=== PATIENT | female | born 1945 | race Caucasian/White ===

== ENCOUNTER 2022-10-05 09:41 | Day surgery (SDC) | payer MEDICARE, BC, SELFPAY ==
[2022-10-05] VITALS (23 sets, daily range): BP systolic 92–172; BP diastolic 47–90; PULSE 53–76; RESP 14–141; TEMP 36–36.7; O2SAT 88–100; BMI 28.3
[2022-10-05] MEDS: LACTATED RINGERS 1000 ML 1,000 ML 100 ML IV ×2 (10:00→12:00)
--- NOTE | 2022-10-05 10:19 | XR_ITS ---
Final Report Patient: PAT GARZA Facility:?[facility] Patient ID:?[id number] Site Patient ID:?[id number]. Site :?[id number] Study:?XRay Knee Right-10/05/2022 1:56:21 PM Ordering Physician:Rosmery Porter Final Report: INDICATION: Post operative total knee arthroplasty TECHNIQUE: Knee radiograph 2 views right COMPARISON: 08/28/2021 FINDINGS: Bone: No acute fractures or aggressive bone lesions are identified. Joint: The patient is status post a total knee arthroplasty with patellar resurfacing. No significant knee effusion is seen. Soft tissue: Anterior swelling, subcutaneous gas and joint gas are present from recent surgery. No radiopaque foreign bodies are seen. IMPRESSION: 1. There is an unremarkable postoperative appearance of the knee arthroplasty. Dictated by: Rohith Wade MD @ 10/05/2022 14:30:19 (Electronic Signature)
[2022-10-05] MEDS: SODIUM CHLORIDE 0.9 % (FLUSH) 10 ML SYRINGE IVF (10:34)
[2022-10-05] MEDS: ACETAMINOPHEN 500 MG TABLET 1000 MG PO ×3 (10:40→23:31)
[2022-10-05] MEDS: CELECOXIB 200 MG CAPSULE PO ×2 (10:40→20:54)
[2022-10-05] MEDS: OXYCODONE (CR) 10 MG TAB.ER.12H PO (10:43)
--- NOTE | 2022-10-05 11:00 | SUR.PREOP ---
TIME?OUT:?1118 PT/RN/MDA?VERIFICATION?OF?SURGICAL?SITE,?PROCEDURE,?AND?CONSENT OBTAINED?PRIOR?TO?INVASIVE?PROCEDURE.
[2022-10-05] MEDS: MIDAZOLAM HCL 1 MG/ML inj IVP (11:18)
[2022-10-05] MEDS: fentaNYL 100 MCG/2 ML inj IVP (11:20)
--- NOTE | 2022-10-05 11:28 | P.NB_ITS ---
Nerve Block Nerve Block Time Seen by Provider: : Date Seen: 10/05/22 Type of block requested by surgeon for post-operative analgesia: geniculars Side: right Time out performed: Yes Verification of patient name: Yes Verification of date of : Yes Site marking: site marked Name of person performing procedure: Harish Continuous monitoring Was continuous monitoring of O2 sat, B/P, measurement technician, recorded every 15 minutes?: Yes Procedure Checklist: sterile prep, needles and gloves Medications given in 5ml increments after negative aspiration: Ropivicaine %: 0.5 mL: 9 Needle gauge: 25 Patient tolerated procedure well: Yes Block Charges Block Charge (with Pro Fee): Genicular Nerve Block Use of Ultrasound Machine for Block: No
--- NOTE | 2022-10-05 11:28 | W.PM.NB ---
Nerve Block Nerve Block Time Seen by Provider: : Date Seen: 10/05/22 Type of block requested by surgeon for post-operative analgesia: adductor canal Side: right Time out performed: Yes Verification of patient name: Yes Verification of date of : Yes Site marking: site marked Name of person performing procedure: Harish Continuous monitoring Was continuous monitoring of O2 sat, B/P, alarm security or surveillance monitor, recorded every 15 minutes?: Yes Procedure Checklist: sterile prep, needles and gloves Ultrasound guided. Images saved: Yes Medications given in 5ml increments after negative aspiration: Ropivicaine %: 0.5 mL: 20 Needle gauge: 20 Decadron (mg): 10 Precedex (mcg): 25 Patient tolerated procedure well: Yes Additional comments: Needle noted adjacent to nerve Block Charges Block Charge (with Pro Fee): Femoral Nerve Use of Ultrasound Machine for Block: Yes- US Guidance/pain block
[2022-10-05] MEDS: CEFAZOLIN 2 GM in 0.9 % SODIUM CHLORIDE Mini-bag 100 ML IVPB (11:42)
[2022-10-05] MEDS: TRANEXAMIC ACID 100 MG/ML INJ 1000 MG IV (11:44)
--- NOTE | 2022-10-05 13:16 | PM.ORPRC ---
Procedure Note Date of procedure: 10/05/22 Procedure: PREOPERATIVE DIAGNOSIS: 1. Right knee osteoarthritis, primary, severe POSTOPERATIVE DIAGNOSIS: 1. Right knee osteoarthritis, primary, severe PROCEDURE: 1. Right total knee arthroplasty SURGEON: German Camarena MD. MOTOR LODGE CLERK: Emanuel Palacios PA-C - Of note, a skilled assistant manager airside operations was critical for this case to aid in patient positioning, tissue retraction, limb manipulation/positioning, and closure. ANESTHESIA: Spinal anesthetic IMPLANTS: DePuy J&J all cemented TKA - Attune PS femur size 4 regular, size 3 tibia, 6 mm poly spacer, 32 mm patella TOURNIQUET: 90 min at 300 torr EBL: 50 ml COMPLICATIONS: None evident INDICATIONS: The patient is a pleasant 77-year-old female who has experienced severe right knee pain and difficulty bearing weight. Workup included x-rays which revealed severe osteoarthrosis in the knee. Given the deformity, the dysfunction, and the pain, as well as the failure of nonoperative management, recommendation was made for surgery. FINDINGS: Full-thickness chondral loss medial compartment broadly. Significant chondromalacia patellofemoral compartment as well and to a lesser degree lateral compartment. Large popliteal cyst encountered. Posterior and perimeter osteophytes noted. DESCRIPTION OF PROCEDURE: Following a thorough discussion of risks, benefits, and alternatives consent was obtained and the right knee was marked. The patient was brought to the operating room and placed supine on the operating table. Induction of anesthesia was undertaken. 1 g IV Ancef and 1 g tranexamic acid was administered within 1 hr of incision preoperatively. Proper time-out was performed identifying proper patient, site, procedure. The operative extremity was prepped and draped in the appropriate sterile fashion using ChloraPrep after the patient was positioned supine with all bony prominences well padded. A longitudinal, anterior, midline skin incision was made starting approximately 3cm proximal to the superior pole of the patella and advanced distal to the tibial tubercle. A median parapatellar arthrotomy was created. A medial subperiosteal sleeve was created with knife, crooks elevator and curved osteotome. The retropatellar fatpad was resected and the synovium in the suprapatellar pouch excised to visualize the anterior femoral cortex. Femoral preparation was performed via an intramedullary guide. Step drill allowed access into the femoral canal. The distal cutting guide was placed with 5? of valgus and 10 mm cut on the distal femur. Femur was sized using a posterior referencing guide in 3? of external rotation. This found have a best fit with the sizing noted above. The 4 in 1 cutting block was then placed, and the distal femur shaped accordingly. The box cut was then created and the trial implant inserted to confirm appropriate fit. We turned our attention to the proximal tibia. Extramedullary guide was utilized for cutting with the goal of being 90 degree cut from the mechanical axis of the tibia in the varus/valgus plane utilizing tibial crest as the primary alignment. Initially a 2 mm resection was performed from the medial tibial plateau. Ultimately, balancing was achieved in both flexion and extension in both varus and valgus. The knee was able to achieve full extension as well comfortably. The patella was initially measured and found have a thickness of 21 mm. It was resected back to approximately 14 mm. It was sized to be a best fit with as noted above. This was drilled, trial placed. All trials were placed and found to have an excellent stability and balance. At this stage, trial implants were removed, the knee was thoroughly irrigated with normal saline, and the cement was mixed. After irrigation, the knee was thoroughly dried, and cement placed, with the real tibial and femoral implants placed along with the patella. Trial poly spacer was placed and confirmed to have excellent range of motion and full extension, and the real poly spacer opened and inserted. All extra cement was removed, and a 3 min Betadine soak performed. Finally, a final irrigation round with normal saline was performed. Closure performed with 0 Vicryl and #0 Stratafix for the quad tendon/retinaculum. 2-0 Vicryl for the subcutaneous and 4-0 Stratafix for subcuticular closure. Dressings were applied and the patient was awoken from anesthesia after the tourniquet deflated and transferred the PACU in stable condition. A skilled assistant manager airside operations was critical for this case to aid in patient positioning, tissue retraction, bone exposure, limb manipulation/positioning, patient safety, and closure. PLAN: 1. Weight bear as tolerated operative extremity. 2. 23 hr perioperative antibiotics. 3. Ice. 4. PT/OT consults for ambulation assistance/mobility education. 5. Social work consult for discharge planning. 6. DVT prophylaxis with at SCDs, Diogo Hose, and aspirin twice daily.
--- NOTE | 2022-10-05 13:42 | W.ANESCHARGE ---
Anesthesia Charges Start Date/Time Anesthesia Start Date: 10/05/22 Anesthesia Start Time: 11:29 Stop Date/Time Anesthesia Stop Date: 10/05/22 Anesthesia Stop Time: 13:42 Summary Emergency: No Extremes of Age: Over 72-CPT 91859
[2022-10-05] MEDS: ONDANSETRON 2 MG/ML inj 4 MG IVP ×2 (14:58→20:15)
--- NOTE | 2022-10-05 16:03 | P.IMCN_ITS ---
Date of Consult Consult date: 10/05/22 Requesting Physician: Orthopedics Primary Care Provider: Marcia Christie MD Consult Narrative Reason for consult: Management of medical problems Narrative: Kiki Zazueta is a 77 year old female seen after right total knee arthroplasty for management of medical problems. There were no operative complications. Patient reports that she has postoperative nausea which is not unusual for her. She also reports being very sleepy. She did not sleep well last night. Also experiencing lingering affects of anesthesia sedation. Pain is well controlled. Her spinal anesthesia is just wearing off. No chills or fever. This morning when she awoke she reportedly was doing well. She has not any recent illness or injury. There were no concerns at her preop physical examination. No problems with bleeding or clotting. She does get nausea from anesthesia with past surgeries. Review of Systems Narrative: She reports no recent health issues or concerns. [facility] Medical History (Updated 10/05/22 @ 16:12 by José Fuentes MD) Encounter for IUD removal (~1972) Hyperlipidemia Hypertension Surgical History (Updated 10/05/22 @ 16:07 by José Fuentes MD) H/O: hysterectomy (~2003) History of breast biopsy History of D&C History of tonsillectomy Family History (Updated 09/22/22 @ 14:29 by Kiki Khanna RN) Father Emphysema lung CHF (congestive heart failure) Mother Macular degeneration Social History (Updated 10/05/22 @ 16:09 by José Fuentes MD) Narrative: She lives in [place] with her . 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 Code status is full. They live in a home that has 2 steps to get in and then she can live on 1 level. She does not smoke. She drinks 2 or 3 glasses of wine per week. Smoking Status: Never smoker Do you use any of these nicotine containing products: None How often do you have a drink containing alcohol: 2-3 times a week Alcohol type: wine How many standard drinks containing alcohol do you have on a typical day: 1 or 2 How often do you have six or more drinks on one occasion: Never AUDIT-C Alcohol total score: 3 Non-prescribed substance use: denies use Caffeine: Yes (coffee 2 cups/a.m.) Meds Home Medications and Allergies Home Medications Medication Instructions Recorded Confirmed Type atenolol 50 mg tablet 50 mg PO BID 06/09/22 10/05/22 History atorvastatin 20 mg tablet (Lipitor) 20 mg PO HS 06/09/22 10/05/22 History spironolactone 50 mg tablet 50 mg PO DAILY 06/09/22 10/05/22 History ammonium lactate 12 % lotion 1 applic topical BID 10/05/22 10/05/22 History fexofenadine-pseudoephedrine ER 1 tab PO DAILY 10/05/22 10/05/22 History 180 mg-240 mg tablet,ext.release 24 hr (Katarina-D 24 Hour) triamcinolone acetonide 0.1 % 1 applic topical BID PRN 10/05/22 10/05/22 History topical cream Allergies Allergy/AdvReac Type Severity Reaction Status Date / Time CASSIA Inhibitors Allergy Mild Cough Verified 10/05/22 10:04 codeine Allergy Unknown Gastrointestinal Verified 10/05/22 10:04 Upset Penicillins Allergy Rash Verified 10/05/22 10:04 Exam Narrative: Exam Narrative: She is awake but sleepy. She appears in no distress. She answers questions appropriately. She is oriented to her circumstances. Eyes normal. Oropharynx with small airway. Neck is supple without mass or adenopathy. Respirations are clear to auscultation. Breathing is unlabored. Cardiovascular: S1, S2, regular rate and rhythm. No murmur gallop or rub. Abdomen is soft without tenderness or mass. Extremities with intact pulses, and intact sensation and no edema. She moves all 4 extremities well Const: Vital Signs, click to edit/add: Vital Signs - 24 hr 10/05/22 10:18 10/05/22 11:15 10/05/22 11:20 Temperature 97.4 F L Pulse Rate 62 62 64 Pulse Rate [Right Pulse Oximeter] Respiratory Rate 16 16 16 Blood Pressure 148/73 H 172/88 H 142/74 H Blood Pressure [Ri ght Arm] Pulse Oximetry 97 100 100 Oxygen Delivery Me thod Room Air Nasal Cannula Nasal Cannula Oxygen Flow Rate 2 2 10/05/22 11:25 10/05/22 13:40 10/05/22 14:09 Temperature 97.4 F L 97.6 F Pulse Rate 64 68 62 Pulse Rate [Right Pulse Oximeter] Respiratory Rate 16 14 15 Blood Pressure 150/74 H 92/56 L 123/82 Blood Pressure [Ri ght Arm] Pulse Oximetry 100 93 98 Oxygen Delivery Me thod Nasal Cannula Room Air Room Air Oxygen Flow Rate 2 10/05/22 13:45 10/05/22 13:50 10/05/22 13:55 Temperature Pulse Rate 68 61 62 Pulse Rate [Right Pulse Oximeter] Respiratory Rate 14 16 15 Blood Pressure 98/47 L 117/67 104/60 Blood Pressure [Ri ght Arm] Pulse Oximetry 94 88 98 Oxygen Delivery Me thod Room Air Room Air Nasal Cannula Oxygen Flow Rate 2 10/05/22 14:00 10/05/22 14:05 10/05/22 14:22 Temperature 97.2 F L Pulse Rate 60 60 60 Pulse Rate [Right Pulse Oximeter] Respiratory Rate 16 16 14 Blood Pressure 98/75 116/64 Blood Pressure [Ri ght Arm] 121/66 Pulse Oximetry 96 98 Oxygen Delivery Me thod Room Air Room Air Room Air Oxygen Flow Rate 0 10/05/22 14:30 10/05/22 14:45 10/05/22 15:00 Temperature 97.5 F L 96.9 F L 97.2 F L Pulse Rate Pulse Rate [Right Pulse Oximeter] 61 53 L 55 L Respiratory Rate 14 14 14 Blood Pressure Blood Pressure [Ri ght Arm] 119/89 124/69 129/64 Pulse Oximetry 97 97 95 Oxygen Delivery Me thod Room Air Room Air Room Air Oxygen Flow Rate 0 0 10/05/22 15:12 10/05/22 15:00 Temperature 97.1 F L Pulse Rate Pulse Rate [Right Pulse Oximeter] 55 L 55 L Respiratory Rate 14 14 Blood Pressure Blood Pressure [Ri ght Arm] 129/64 Pulse Oximetry 96 Oxygen Delivery Me thod Room Air Oxygen Flow Rate 0 Assessment and Plan Assessment and plan (1) Osteoarthritis of right knee: Problem comment: Right knee osteoarthrosis, moderate-severe. Generally doing well. Somewhat sedated at this point. Somewhat nauseated. Continue to follow these symptoms and manage as needed. Status: Acute (2) Hypertension: Problem comment: She held spironolactone today will continue to hold it until we see how her blood pressure response. Will also hold atenolol this evening but start atenolol in the morning at usual dose. Status: Acute Plan Anticipate uncomplicated recovery from surgery and discharge to home tomorrow. Total time spent today is 35 minutes, 20 minutes in coordination of care discussing with patient and ongoing evaluation management of knee surgery, rehab and hypertension
[2022-10-05] MEDS: OXYCODONE 5 MG TABLET PO ×3 (16:43→23:30)
[2022-10-05] MEDS: CEFAZOLIN 1 GM in 0.9 % SODIUM CHLORIDE Mini-bag 100 ML IVPB (17:42)
--- NOTE | 2022-10-05 18:30 | PC.NURSE ---
End of Shift: Patient pleasant and cooperative. Patient vitally stable, lungs clear, BS WNL, IV running LR at 75. Patient given zophran once and Q-easy patch for nausea, patient's nausea has gotten better. Patient so far has only eaten on jello, and still has her dinner order in front of her. Patient is 1 assist, walker, gb. Patient has ambulated to the toilet and is up in chair. Patient has rated pain at most 7/10, patient has taken scheduled tylenol and 5 of oxy, 10 of oxy will be given closer to end of shift. Cryocuff applied. Right knee dressing, C/D/I.
[2022-10-05] MEDS: SENNOSIDES 1 TAB TABLET 2 TAB PO (20:53)
[2022-10-05] MEDS: ASPIRIN 81 MG TABLET EC PO (20:54)
[2022-10-05] MEDS: LACTATED RINGERS 1000 ML 1,000 ML 75 ML IV (20:56)
[2022-10-06] MEDS: CEFAZOLIN 1 GM in 0.9 % SODIUM CHLORIDE Mini-bag 100 ML IVPB ×2 (01:59→09:52)
[2022-10-06] MEDS: ONDANSETRON 2 MG/ML inj 4 MG IVP ×2 (02:03→07:33)
[2022-10-06 03:00] VITALS: BP 167/82; PULSE 65; RESP 16; TEMP 36.7; O2SAT 94
[2022-10-06] MEDS: OXYCODONE 5 MG TABLET PO ×2 (04:31→08:38)
[2022-10-06] MEDS: ACETAMINOPHEN 500 MG TABLET 1000 MG PO (06:27)
--- NOTE | 2022-10-06 06:42 | W.ANESCHARGE ---
Anesthesia Charges Start Date/Time Anesthesia Start Date: 10/05/22 Anesthesia Start Time: 11:29 Stop Date/Time Anesthesia Stop Date: 10/05/22 Anesthesia Stop Time: 13:42 Summary Emergency: No Extremes of Age: Over 72-CPT [id number]
[2022-10-06 06:49] LABS: Hematocrit 38.2 % (33.0-51.0); Hemoglobin* 12.3 gm/dL (12.0-16.0); Immature Granulocytes Pct Auto 0.2 %; Lymphocytes Percent Auto 9.1 % (20-44); Mean Corpuscular HGB Conc 32 gm/dL (32-36); Mean Corpuscular Hemoglobin 32 pg (26-34); Mean Corpuscular Volume 98 fL (80-100); Monocytes Percent Auto 4.8 % (0.0-11.0); Neutrophils Percent Auto 85.9 % (42.0-72.0); Platelet Count* 260 K/uL (140-440); RDW Coefficient of Variation % 12.1 % (11.5-15.5); Red Blood Count 3.89 m/uL (4.00-5.20); Slide Review Reflex No; White Blood Count* 11.77 K/uL (4.50-11.00)
[2022-10-06 06:58] LABS: Potassium* 4.8 mmol/L (3.6-5.1); Sodium* 133 mmol/L (135-149)
--- NOTE | 2022-10-06 07:00 | PC.NURSE ---
Pt. alert and oriented, pleasant and cooperative. Pt's VSS, lungs clear, BS WNL, IV running LR at 75. Administered zofran IV once for nausea, pt. only had one episode of Nausea after ambulating to BR. Patient is 1 assist, walker, gb. Pt. rates her pain at most 8/10, patient has taken scheduled tylenol and 5mg of oxy, Cryocuff to site. Right knee dressing, C/D/I.
[2022-10-06 07:01] LABS: Blood Urea Nitrogen* 16 mg/dL (7-30); Creatinine* 0.5 mg/dL (0.5-1.5); Est. Creatinine Clearance* 36.68; Estimated Glomerular Filt Rate 98 ml/min
[2022-10-06 07:35] VITALS: BP 132/77; PULSE 63; RESP 16; TEMP 36.5; O2SAT 95
--- NOTE | 2022-10-06 08:04 | PM.ORPN ---
Subjective Subjective Date Seen: 10/06/22 Principal diagnosis: Status postop day 1 right total knee arthroplasty Interval history: Patient reports doing well. Acute events overnight include nausea. She has a history of nausea postoperatively. She also history motion sickness, takes Dramamine for flights, has a difficult time in the car especially when in the backseat. This nausea is being managed with antiemetics including Zofran, Compazine. Hospitalist states they may include meclizine. Pain managed with scheduled /PRN medications and ice. DVT prophylaxis 81 mg aspirin by mouth twice daily, bilateral knee high Diogo stockings, and SCDs. Denies fevers, chills, aches, CP, SOB/BRUNO, tachycardia, or lightheadedness. Ortho Exam Narrative Exam Narrative: -Patient appears comfortable; no apparent acute distress -Alert and oriented times 3 -Operative knee mildly swollen; soft tissues supple; no ecchymosis; no erythematous streaking Warmth appropriate -Surgical dressing clean, dry, intact; no drainage -Bilateral calfs soft; no significant swelling, edema, tenderness, erythema, discoloration, warmth, or palpable cords -2+ DP/PT pulses, intact dermatomes and myotomes distally (5/5 strength) Const Vital Signs, click to edit/add: Vital Signs - 24 hr 10/05/22 10:18 10/05/22 11:15 10/05/22 11:20 Temperature 97.4 F L Pulse Rate 62 62 64 Pulse Rate [Right Pulse Oximeter] Respiratory Rate 16 16 16 Blood Pressure 148/73 H 172/88 H 142/74 H Blood Pressure [Right Arm] Pulse Oximetry 97 100 100 Oxygen Delivery Method Room Air Nasal Cannula Nasal Cannula Oxygen Flow Rate 2 2 10/05/22 11:25 10/05/22 13:40 10/05/22 14:09 Temperature 97.4 F L 97.6 F Pulse Rate 64 68 62 Pulse Rate [Right Pulse Oximeter] Respiratory Rate 16 14 15 Blood Pressure 150/74 H 92/56 L 123/82 Blood Pressure [Right Arm] Pulse Oximetry 100 93 98 Oxygen Delivery Method Nasal Cannula Room Air Room Air Oxygen Flow Rate 2 10/05/22 13:45 10/05/22 13:50 10/05/22 13:55 Temperature Pulse Rate 68 61 62 Pulse Rate [Right Pulse Oximeter] Respiratory Rate 14 16 15 Blood Pressure 98/47 L 117/67 104/60 Blood Pressure [Right Arm] Pulse Oximetry 94 88 98 Oxygen Delivery Method Room Air Room Air Nasal Cannula Oxygen Flow Rate 2 10/05/22 14:00 10/05/22 14:05 10/05/22 14:22 Temperature 97.2 F L Pulse Rate 60 60 60 Pulse Rate [Right Pulse Oximeter] Respiratory Rate 16 16 14 Blood Pressure 98/75 116/64 Blood Pressure [Right Arm] 121/66 Pulse Oximetry 96 98 Oxygen Delivery Method Room Air Room Air Room Air Oxygen Flow Rate 0 10/05/22 14:30 10/05/22 14:45 10/05/22 15:00 Temperature 97.5 F L 96.9 F L 97.2 F L Pulse Rate Pulse Rate [Right Pulse Oximeter] 61 53 L 55 L Respiratory Rate 14 14 14 Blood Pressure Blood Pressure [Right Arm] 119/89 124/69 129/64 Pulse Oximetry 97 97 95 Oxygen Delivery Method Room Air Room Air Room Air Oxygen Flow Rate 0 0 10/05/22 15:00 10/05/22 15:15 10/05/22 15:45 Temperature 97.2 F L 97.2 F L Pulse Rate Pulse Rate [Right Pulse Oximeter] 55 L 60 56 L Respiratory Rate 14 14 14 Blood Pressure Blood Pressure [Right Arm] 125/68 118/63 Pulse Oximetry 96 98 Oxygen Delivery Method Room Air Room Air Oxygen Flow Rate 0 0 10/05/22 16:15 10/05/22 17:19 10/05/22 18:19 Temperature 97.7 F 96.8 F L 97.1 F L Pulse Rate Pulse Rate [Right Pulse Oximeter] 64 65 73 Respiratory Rate 14 14 14 Blood Pressure Blood Pressure [Right Arm] 125/69 128/73 130/75 Pulse Oximetry 96 93 94 Oxygen Delivery Method Room Air Room Air Room Air Oxygen Flow Rate 0 0 0 10/05/22 19:00 10/05/22 20:15 10/05/22 23:00 Temperature 97.1 F L 97 F L Pulse Rate Pulse Rate [Right Pulse Oximeter] 73 76 68 Respiratory Rate 141 H 16 16 Blood Pressure Blood Pressure [Right Arm] 145/83 H 130/74 Pulse Oximetry 96 97 Oxygen Delivery Method Room Air Room Air Oxygen Flow Rate 0 0 10/05/22 23:00 10/06/22 03:00 10/06/22 07:35 Temperature 98.0 F 98.0 F 97.7 F Pulse Rate Pulse Rate [Right Pulse Oximeter] 68 65 63 Respiratory Rate 16 16 16 Blood Pressure Blood Pressure [Right Arm] 157/90 H 167/82 H 132/77 Pulse Oximetry 93 94 95 Oxygen Delivery Method Room Air Room Air Room Air Oxygen Flow Rate 0 0 Assessment and Plan Assessment and plan (1) Osteoarthritis of right knee: Problem details: Right knee osteoarthrosis, moderate-severe. Generally doing well. Somewhat sedated at this point. Somewhat nauseated. Continue to follow these symptoms and manage as needed. POD 1 right total knee arthroplasty Status: Acute (2) Hypertension: Problem details: She held spironolactone today will continue to hold it until we see how her blood pressure response. Will also hold atenolol this evening but start atenolol in the morning at usual dose. Status: Acute Plan - Complete 23 hour perioperative antibiotics. - PT/OT consult for education and assistance. - Social work consult for discharge planning - Prescribed analgesics as needed - DVT prophylaxis: 81 mg aspirin by mouth twice daily, bilateral knee high Diogo Hose stockings and SCDs - Anticipation is for discharge to home with spouse if the patient remains medically stable, pain is controlled, and they are safe with mobilization.
--- NOTE | 2022-10-06 08:07 | P.DS_ITS ---
DS: Providers Provider Date Seen: 10/06/22 Date of admission: Med/Surg Recovery 10/05/2022 Primary care physician: Marcia Christie MD Consults: 10/05/22 14:17 Consult to Occupational Therapy [CONS] Routine Comment: Reason(s) for OT Consult:: ADLs Prior to Discharge Any Restrictions?:: See Comment Comment: See nursing activity order for any restrictions. Consult to Physical Therapy [CONS] Routine Comment: Ambulate in the alvarez today. Reason(s) for PT Consult:: TKA TX Protocol POD#0 Any Restrictions?:: See Comment Comment: See nursing activity order for any restrictions. Consult to Physician [CONS] Routine Comment: Consulting Provider: Hospitalists Has provider been notified: No Consult to Foundation Engineer [CONS] Routine Comment: Reason for Consult:: Discharge Planning Needs Attending Physician on discharge: German Camarena MD Date of Discharge: 10/06/22 DS: Diagnosis Discharge Diagnosis (1) Osteoarthritis of right knee: Status: Acute Problem details: POD 1 right total knee arthroplasty (2) Status post right knee replacement: Status: Acute DS: Summary Hospital Course Hospital Course: The patient has a history of right knee osteoarthritis, primary, severe. After appropriate preoperative evaluation, the patient underwent right total knee arthroplasty. Postoperatively given anticoagulation for deep vein thrombosis prophylaxis. Difficult time with nausea postoperative which is baseline for the patient. They progressed to PT/OT and were felt ready and prepared for discharge to home with appropriate pain medication and anticoagulation medications. Status at Discharge Functional status at discharge: uses cane/walker Overall status at discharge: patient is progressing back to baseline Time Spent with Patient Time attestation: Total time spent providing and/or coordinating discharge services: Exam Const: Vital Signs, click to edit/add: Vital Signs - 24 hr 10/05/22 10:18 10/05/22 11:15 10/05/22 11:20 Temperature 97.4 F L Pulse Rate 62 62 64 Pulse Rate [Right Pulse Oximeter] Respiratory Rate 16 16 16 Blood Pressure 148/73 H 172/88 H 142/74 H Blood Pressure [Ri ght Arm] Pulse Oximetry 97 100 100 Oxygen Delivery Me thod Room Air Nasal Cannula Nasal Cannula Oxygen Flow Rate 2 2 10/05/22 11:25 10/05/22 13:40 10/05/22 14:09 Temperature 97.4 F L 97.6 F Pulse Rate 64 68 62 Pulse Rate [Right Pulse Oximeter] Respiratory Rate 16 14 15 Blood Pressure 150/74 H 92/56 L 123/82 Blood Pressure [Ri ght Arm] Pulse Oximetry 100 93 98 Oxygen Delivery Me thod Nasal Cannula Room Air Room Air Oxygen Flow Rate 2 10/05/22 13:45 10/05/22 13:50 10/05/22 13:55 Temperature Pulse Rate 68 61 62 Pulse Rate [Right Pulse Oximeter] Respiratory Rate 14 16 15 Blood Pressure 98/47 L 117/67 104/60 Blood Pressure [Ri ght Arm] Pulse Oximetry 94 88 98 Oxygen Delivery Me thod Room Air Room Air Nasal Cannula Oxygen Flow Rate 2 10/05/22 14:00 10/05/22 14:05 10/05/22 14:22 Temperature 97.2 F L Pulse Rate 60 60 60 Pulse Rate [Right Pulse Oximeter] Respiratory Rate 16 16 14 Blood Pressure 98/75 116/64 Blood Pressure [Ri ght Arm] 121/66 Pulse Oximetry 96 98 Oxygen Delivery Me thod Room Air Room Air Room Air Oxygen Flow Rate 0 10/05/22 14:30 10/05/22 14:45 10/05/22 15:00 Temperature 97.5 F L 96.9 F L 97.2 F L Pulse Rate Pulse Rate [Right Pulse Oximeter] 61 53 L 55 L Respiratory Rate 14 14 14 Blood Pressure Blood Pressure [Ri ght Arm] 119/89 124/69 129/64 Pulse Oximetry 97 97 95 Oxygen Delivery Me thod Room Air Room Air Room Air Oxygen Flow Rate 0 0 10/05/22 15:00 10/05/22 15:15 10/05/22 15:45 Temperature 97.2 F L 97.2 F L Pulse Rate Pulse Rate [Right Pulse Oximeter] 55 L 60 56 L Respiratory Rate 14 14 14 Blood Pressure Blood Pressure [Ri ght Arm] 125/68 118/63 Pulse Oximetry 96 98 Oxygen Delivery Me thod Room Air Room Air Oxygen Flow Rate 0 0 10/05/22 16:15 10/05/22 17:19 10/05/22 18:19 Temperature 97.7 F 96.8 F L 97.1 F L Pulse Rate Pulse Rate [Right Pulse Oximeter] 64 65 73 Respiratory Rate 14 14 14 Blood Pressure Blood Pressure [Ri ght Arm] 125/69 128/73 130/75 Pulse Oximetry 96 93 94 Oxygen Delivery Me thod Room Air Room Air Room Air Oxygen Flow Rate 0 0 0 10/05/22 19:00 10/05/22 20:15 10/05/22 23:00 Temperature 97.1 F L 97 F L Pulse Rate Pulse Rate [Right Pulse Oximeter] 73 76 68 Respiratory Rate 141 H 16 16 Blood Pressure Blood Pressure [Ri ght Arm] 145/83 H 130/74 Pulse Oximetry 96 97 Oxygen Delivery Me thod Room Air Room Air Oxygen Flow Rate 0 0 10/05/22 23:00 10/06/22 03:00 10/06/22 07:35 Temperature 98.0 F 98.0 F 97.7 F Pulse Rate Pulse Rate [Right Pulse Oximeter] 68 65 63 Respiratory Rate 16 16 16 Blood Pressure Blood Pressure [Ri ght Arm] 157/90 H 167/82 H 132/77 Pulse Oximetry 93 94 95 Oxygen Delivery Me thod Room Air Room Air Room Air Oxygen Flow Rate 0 0 DS: Data Data Completed and Pending Labs on day of discharge: Labs from last 24 hours 10/06/22 10/06/22 05:51 05:51 WBC 11.77 H RBC 3.89 L Hgb 12.3 Hct 38.2 MCV 98 MCH 32 MCHC 32 RDW Coeff of Jerad 12.1 Plt Count 260 Neut % (Auto) 85.9 H Lymph % (Auto) 9.1 L [place] % (Auto) 4.8 Eos % (Auto) 0.0 Baso % (Auto) 0.0 Neut # (Auto) 10.10 H Lymph # (Auto) 1.10 [place] # (Auto) 0.60 Eos # (Auto) 0.00 Baso # (Auto) 0.00 Abs Immat Gran (auto) 0.00 Imm/Tot Granulo (auto) 0.2 Sodium 133 L Potassium 4.8 BUN 16 Creatinine 0.5 Estimated Creat Clear 36.68 Estimated GFR 98 Discharge Plan Discharge Disposition: Home, Self-Care Discharging Surgeon: German Camarena Follow-Up Appointment: 1 week PO with BRIGITTE Prescriptions: New sennosides-docusate sodium [Senna-S] 8.6-50 mg tablet 1 - 4 tab-cap PO BID PRN (Reason: constipation) Qty: 60 0RF Rx Instructions: Hold medication if experiencing loose stools. aspirin 81 mg tablet,delayed release (DR/EC) 81 mg PO BID Qty: 60 0RF Rx Instructions: Medication to help prevent blood clots postoperatively; take TWICE daily. acetaminophen 500 mg capsule 500 - 1,000 mg PO Q6H MDD 4000mg PRNQty: 100 0RF oxycodone 5 mg tablet 2.5 - 5 mg PO Q4-6H MDD 6 PRN (Reason: pain) Qty: 42 0RF Rx Instructions: Take as needed for postop pain: 2.5mg mild pain, 5mg moderate-severe pain; wean as tolerated. celecoxib 100 mg capsule 100 mg PO BID Qty: 60 0RF Continued atenolol 50 mg tablet 50 mg PO BID atorvastatin [Lipitor] 20 mg tablet 20 mg PO HS spironolactone 50 mg tablet 50 mg PO DAILY Discontinued ammonium lactate 12 % lotion 1 applic topical BID fexofenadine-pseudoephedrine [[place]-D 24 Hour] 180-240 mg tablet extended release 24 hr 1 tab PO DAILY triamcinolone acetonide 0.1 % cream 1 applic TOPICAL BID PRN Label Comments: APPLY TO AFFECTED AREA 1-2X DAILY FOR UP TO 2 WEEKS AT A TIME REPEAT NEEDED Activity Level: Activity as Tolerated, Weight Bearing as Tolerated, Use Cane and Use Walker Patient Instructions: Surgical Site Infections (DC) Additional Instructions: Wound: ?Do not remove original dressing; we will remove this at first postop visit in 1 week. Only remove dressing if integrity is in question. ?No immersing wound in water; showering okay; light scrub with your hand and body soap, rinse, dab dry ?Sutures are under the skin, will dissolve; allow surgical glue to come off naturally; do not scrub the wound or apply ointments/lotions ?Call our office with any redness that streaks, excessive drainage from the wound, or wound gapping. Ice/Elevate: ?Ice as needed for swelling and discomfort (cryocuff or ice pack); elevate frequently above the heart CHANDLER socks: ?Wear for 1 month, remove for 1 hour 3 times per day ?These are frustrating to take on/off, but are important for blood clot prevention for 1 month after surgery Blood Clot Prevention (DVT): ?Medication: 81 mg aspirin by mouth twice daily (1 month) Driving: ?Do not drive while taking narcotic pain medication ?Anticipate 4-6 weeks no driving if operative leg is driving leg Dental: ?No elective dental work for 6 months post-op. If there is an urgent/emergent dental need, contact our office for an antibiotic prescription. Smoking/Alcohol: ?Do not smoke; do no drink alcohol especially when taking postoperative oral narcotic medication Seek Care from you Primary Care Provider if you experience the following issues in the postoperative phase and beyond: ?Bacterial infections such as: pneumonia, bacterial skin infection (cellulitis), UTI, high fever, chills unrelated to the operative body part - call your primary care physician urgently for treatment in hopes to protect your health and the metal implant. Referrals: ?PT, OT per patient preference - evaluate treat total knee arthroplasty protocol (gait training, ROM, ADLs) Follow up: ?Ortho surgeon follow-up in 6 weeks; repeat radiographs three views operative knee ?PA-C visit in 1 week *If there are any acute concerns regarding your surgery, please call our orthopedic clinic ([phone]) Forms: Work/Release Restrictions Follow-up: Marcia Christie MD [Primary Care Provider] - Discharge Orders: Discharge Order (Routine); Ordered 10/06/22 Ordered By: Emanuel Palacios
[2022-10-06] MEDS: PROCHLORPERAZINE 5 MG/ML VIAL IV (08:37)
[2022-10-06] MEDS: ASPIRIN 81 MG TABLET EC PO (08:38)
[2022-10-06] MEDS: SENNOSIDES 1 TAB TABLET 2 TAB PO (08:38)
[2022-10-06] MEDS: atenoloL 50 MG TABLET PO (08:38)
[2022-10-06] MEDS: CELECOXIB 200 MG CAPSULE PO (08:39)
--- NOTE | 2022-10-06 09:26 | PM.DS1 ---
DS: Providers Provider Date Seen: 10/06/22 Primary care physician: Marcia Christie MD Attending Physician on discharge: German Camarena MD Date of Discharge: 10/06/22 DS: Diagnosis Discharge Diagnosis (1) Osteoarthritis of right knee: Status: Acute Problem details: POD 1 right total knee arthroplasty (2) Status post right knee replacement: Status: Acute (3) Postoperative nausea: Status: Acute Problem details: Some improvement in nausea today (4) Hypertension: Status: Acute Problem details: Blood pressure has been adequate overnight. Blood pressure medicines held for the 1st day DS: Summary Hospital Course Hospital Course: 77-year-old female admitted to the hospital for right total knee arthroplasty. Procedure was performed on the day of admission by Dr. Camarena. There were no operative complications. Postoperatively she has done well except for persistent nausea. This has been a problem for her with previous surgeries as well. She has been able to tolerate breakfast this morning. Pain has been adequately controlled. Status at Discharge Functional status at discharge: uses cane/walker Overall status at discharge: patient is progressing back to baseline Time Spent with Patient Time attestation: Total time spent providing and/or coordinating discharge services: 20 minutes Exam Narrative: Exam Narrative: She is alert and appears in no distress. Breathing is unlabored. Lower extremities examined. No edema. Intact pulses and sensation and strength in both feet and ankles Const: Vital Signs, click to edit/add: Vital Signs - 24 hr 10/05/22 10:18 10/05/22 11:15 10/05/22 11:20 Temperature 97.4 F L Pulse Rate 62 62 64 Pulse Rate [Right Pulse Oximeter] Respiratory Rate 16 16 16 Blood Pressure 148/73 H 172/88 H 142/74 H Blood Pressure [Ri ght Arm] Pulse Oximetry 97 100 100 Oxygen Delivery Me thod Room Air Nasal Cannula Nasal Cannula Oxygen Flow Rate 2 2 10/05/22 11:25 10/05/22 13:40 10/05/22 14:09 Temperature 97.4 F L 97.6 F Pulse Rate 64 68 62 Pulse Rate [Right Pulse Oximeter] Respiratory Rate 16 14 15 Blood Pressure 150/74 H 92/56 L 123/82 Blood Pressure [Ri ght Arm] Pulse Oximetry 100 93 98 Oxygen Delivery Me thod Nasal Cannula Room Air Room Air Oxygen Flow Rate 2 10/05/22 13:45 10/05/22 13:50 10/05/22 13:55 Temperature Pulse Rate 68 61 62 Pulse Rate [Right Pulse Oximeter] Respiratory Rate 14 16 15 Blood Pressure 98/47 L 117/67 104/60 Blood Pressure [Ri ght Arm] Pulse Oximetry 94 88 98 Oxygen Delivery Me thod Room Air Room Air Nasal Cannula Oxygen Flow Rate 2 10/05/22 14:00 10/05/22 14:05 10/05/22 14:22 Temperature 97.2 F L Pulse Rate 60 60 60 Pulse Rate [Right Pulse Oximeter] Respiratory Rate 16 16 14 Blood Pressure 98/75 116/64 Blood Pressure [Ri ght Arm] 121/66 Pulse Oximetry 96 98 Oxygen Delivery Me thod Room Air Room Air Room Air Oxygen Flow Rate 0 10/05/22 14:30 10/05/22 14:45 10/05/22 15:00 Temperature 97.5 F L 96.9 F L 97.2 F L Pulse Rate Pulse Rate [Right Pulse Oximeter] 61 53 L 55 L Respiratory Rate 14 14 14 Blood Pressure Blood Pressure [Ri ght Arm] 119/89 124/69 129/64 Pulse Oximetry 97 97 95 Oxygen Delivery Me thod Room Air Room Air Room Air Oxygen Flow Rate 0 0 10/05/22 15:00 10/05/22 15:15 10/05/22 15:45 Temperature 97.2 F L 97.2 F L Pulse Rate Pulse Rate [Right Pulse Oximeter] 55 L 60 56 L Respiratory Rate 14 14 14 Blood Pressure Blood Pressure [Ri ght Arm] 125/68 118/63 Pulse Oximetry 96 98 Oxygen Delivery Me thod Room Air Room Air Oxygen Flow Rate 0 0 10/05/22 16:15 10/05/22 17:19 10/05/22 18:19 Temperature 97.7 F 96.8 F L 97.1 F L Pulse Rate Pulse Rate [Right Pulse Oximeter] 64 65 73 Respiratory Rate 14 14 14 Blood Pressure Blood Pressure [Ri ght Arm] 125/69 128/73 130/75 Pulse Oximetry 96 93 94 Oxygen Delivery Me thod Room Air Room Air Room Air Oxygen Flow Rate 0 0 0 10/05/22 19:00 10/05/22 20:15 10/05/22 23:00 Temperature 97.1 F L 97 F L Pulse Rate Pulse Rate [Right Pulse Oximeter] 73 76 68 Respiratory Rate 141 H 16 16 Blood Pressure Blood Pressure [Ri ght Arm] 145/83 H 130/74 Pulse Oximetry 96 97 Oxygen Delivery Me thod Room Air Room Air Oxygen Flow Rate 0 0 10/05/22 23:00 10/06/22 03:00 10/06/22 07:35 Temperature 98.0 F 98.0 F 97.7 F Pulse Rate Pulse Rate [Right Pulse Oximeter] 68 65 63 Respiratory Rate 16 16 16 Blood Pressure Blood Pressure [Ri ght Arm] 157/90 H 167/82 H 132/77 Pulse Oximetry 93 94 95 Oxygen Delivery Me thod Room Air Room Air Room Air Oxygen Flow Rate 0 0 Documenting provider has reviewed patient's vital signs: yes DS: Data Data Completed and Pending Labs on day of discharge: Labs from last 24 hours 10/06/22 10/06/22 05:51 05:51 WBC 11.77 H RBC 3.89 L Hgb 12.3 Hct 38.2 MCV 98 MCH 32 MCHC 32 RDW Coeff of Jerad 12.1 Plt Count 260 Neut % (Auto) 85.9 H Lymph % (Auto) 9.1 L [place] % (Auto) 4.8 Eos % (Auto) 0.0 Baso % (Auto) 0.0 Neut # (Auto) 10.10 H Lymph # (Auto) 1.10 [place] # (Auto) 0.60 Eos # (Auto) 0.00 Baso # (Auto) 0.00 Abs Immat Gran (auto) 0.00 Imm/Tot Granulo (auto) 0.2 Sodium 133 L Potassium 4.8 BUN 16 Creatinine 0.5 Estimated Creat Clear 36.68 Estimated GFR 98 Discharge Plan Discharge Disposition: Home, Self-Care Discharging Surgeon: German Camarena Follow-Up Appointment: 1 week PO with BRIG[facility]TE Prescriptions: New sennosides-docusate sodium [Senna-S] 8.6-50 mg tablet 1 - 4 tab-cap PO BID PRN (Reason: constipation) Qty: 60 0RF Rx Instructions: Hold medication if experiencing loose stools. aspirin 81 mg tablet,delayed release (DR/EC) 81 mg PO BID Qty: 60 0RF Rx Instructions: Medication to help prevent blood clots postoperatively; take TWICE daily. acetaminophen 500 mg capsule 500 - 1,000 mg PO Q6H MDD 4000mg PRNQty: 100 0RF oxycodone 5 mg tablet 2.5 - 5 mg PO Q4-6H MDD 6 PRN (Reason: pain) Qty: 42 0RF Rx Instructions: Take as needed for postop pain: 2.5mg mild pain, 5mg moderate-severe pain; wean as tolerated. celecoxib 100 mg capsule 100 mg PO BID Qty: 60 0RF hydroxyzine pamoate [Vistaril] 25 mg capsule 25 mg PO QID PRNQty: 20 0RF Continued atenolol 50 mg tablet 50 mg PO BID atorvastatin [Lipitor] 20 mg tablet 20 mg PO HS spironolactone 50 mg tablet 50 mg PO DAILY Discontinued ammonium lactate 12 % lotion 1 applic topical BID fexofenadine-pseudoephedrine [[place]-D 24 Hour] 180-240 mg tablet extended release 24 hr 1 tab PO DAILY triamcinolone acetonide 0.1 % cream 1 applic TOPICAL BID PRN Label Comments: APPLY TO AFFECTED AREA 1-2X DAILY FOR UP TO 2 WEEKS AT A TIME REPEAT NEEDED Activity Level: Activity as Tolerated, Weight Bearing as Tolerated, Use Cane and Use Walker Discharge Diet: Regular Patient Instructions: Acetaminophen (By mouth), Aspirin (By mouth), Oxycodone, Rapid Release (By mouth), Celecoxib (By mouth), Senna (By mouth), Surgical Site Infections (DC), Knee Replacement (DC) Additional Instructions: Wound: ?Do not remove original dressing; we will remove this at first postop visit in 1 week. Only remove dressing if integrity is in question. ?No immersing wound in water; showering okay; light scrub with your hand and body soap, rinse, dab dry ?Sutures are under the skin, will dissolve; allow surgical glue to come off naturally; do not scrub the wound or apply ointments/lotions ?Call our office with any redness that streaks, excessive drainage from the wound, or wound gapping. Ice/Elevate: ?Ice as needed for swelling and discomfort (cryocuff or ice pack); elevate frequently above the heart CHANDLER socks: ?Wear for 1 month, remove for 1 hour 3 times per day ?These are frustrating to take on/off, but are important for blood clot prevention for 1 month after surgery Blood Clot Prevention (DVT): ?Medication: 81 mg aspirin by mouth twice daily (1 month) Driving: ?Do not drive while taking narcotic pain medication ?Anticipate 4-6 weeks no driving if operative leg is driving leg Dental: ?No elective dental work for 6 months post-op. If there is an urgent/emergent dental need, contact our office for an antibiotic prescription. Smoking/Alcohol: ?Do not smoke; do no drink alcohol especially when taking postoperative oral narcotic medication Seek Care from you Primary Care Provider if you experience the following issues in the postoperative phase and beyond: ?Bacterial infections such as: pneumonia, bacterial skin infection (cellulitis), UTI, high fever, chills unrelated to the operative body part - call your primary care physician urgently for treatment in hopes to protect your health and the metal implant. Referrals: ?PT, OT per patient preference - evaluate treat total knee arthroplasty protocol (gait training, ROM, ADLs) Follow up: ?Ortho surgeon follow-up in 6 weeks; repeat radiographs three views operative knee ?BRIGITTE visit in 1 week *If there are any acute concerns regarding your surgery, please call our orthopedic clinic ([phone]) Forms: Work/Release Restrictions Follow-up: Winifred Mason PA-C [Physician [employer]] - 10/14/22 11:40 am (At the [facility] [phone]) Marcia Christie MD [Primary Care Provider] - Discharge Orders: Discharge Order (Routine); Ordered 10/06/22 Ordered By: Emanuel Palacios
[2022-10-06 11:10] VITALS: BP 149/84; PULSE 61; RESP 16; TEMP 36.4; O2SAT 94
--- NOTE | 2022-10-06 12:00 | PC.NURSE ---
Patient was discharged. Discharge summary was reviewed and understood by patient and patients . Has follow up appointment on 10/14. Will have PT starting tomorrow. Pain was well controlled with PO pain meds. Needed IV zofran and compazine this morning for nausea but this was helpful and patient was able to eat, drink, and participate in PT/OT without difficulty. Vital signs within normal limits. PIV was removed and catheter was intact. Incision was clean dry and intact. Lung sounds clear. Passing flatus. All questions answered. All belongings sent with patient. left via wheelchair escort.
== END 2022-10-06 12:00 | disposition home or self-care (01) ==
LOC: OR 09:43 → MEDSURG 10:26
PROVIDERS: PCP Family Medicine; Visit Provider Orthopaedic Surgery Sports Medicine
PROC: (CPT 27447; principal; 2022-10-05 11:30)
DX: M17.11 Unilateral primary osteoarthritis, right knee (principal); M25.561 Pain in right knee; I10 Essential (primary) hypertension; R11.0 Nausea; E78.5 Hyperlipidemia, unspecified
CPT/HCPCS: 27447; 01400; 01402; 36415; 64447; 64454; 73560; 76942; 82565; 84132; 84295; 84520; 85025; 97110; 97116; 97161; 97165; 97535; 99100; A9270; C1776; J0690; J0780; J1100; J2250; J2370; J2405; J2704; J2795; J3010; J7120

== ENCOUNTER 2022-11-05 08:15 | Outpatient (RCR) | payer MEDICARE, BC, SELFPAY ==
--- NOTE | 2022-09-28 11:02 | PT.OPEX ---
PT [place] [facility] Eval PT [facility] Eval Start: 09/28/22 07:46 Freq: Status: Active Protocol: Document 09/28/22 09:56 KLV (Rec: 09/28/22 10:00 KLV [id number]) E-signed By Niharika Estrada, PT Physical Therapy Outpatient Evaluation Insurance Information Recert Due Date 12/23/22 Insurance Name Medicare B,Blue Cross/Blue Shield Medical Diagnosis Right knee pain Pre/Post-op R TKA Encounter for other orthopedic aftercare Treating Diagnosis Right knee pain, limited knee ROM, impaired R LE strength, antalgic gait Referring MD Nicol Jordan Subjective Kiki reports to PT with primary complaint of right knee pain that has been ongoing and progressively worse over the past few years. She is having difficulty going on longer walks, negotiating stairs (ascending> descending) and participating in yoga. She has had repeat injections with short term relief. She is anxious to proceed with surgery but hopeful she will not be as limited with walking, stair negotiation and yoga following this surgery. Her daughter is a physical therapist as well. She lives with her in a 1 story home with basement (no need to go into basement following surgery). She does not have a FWW and would like to have this issued in the hospital. 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 Only 1 threshold step up to landing and another step to enter house that she will be able to negotiate with FWW. PMH: hypertension, arthritis Pain Comments 6/10 worst walking and stair negotiation Date of Surgery (If applicable) 10/05/22 Current Work Status Retired Precautions Therapy Limitations/Systems Review Not Limited Objective Other/Pertinent Objective UE ROM and strength WNL and pain free Knee ROM: -R 0-126 -L 0-128 Gait: ambulates independently with slightly reduced stance time R LE General TTP medial and lateral joint line Patellar compression: + pain Denies radicular symptoms Assessment Assessment/Impression Pt presents with signs and symptoms consistent with primary R knee OA. DOS: scheduled for R TKA 10/05/22. Anticipated deficits/ impairments in pain, ROM, and strength. Pt would benefit from skilled PT interventions to facilitate preparation for upcoming surgery and optimization of return to PLOF following surgery. She demonstrates independence with HEP and use of FWW as well as appropriate gait pattern on stairs. She is appropriate to proceed with surgery at this time and has a safe d/c plan. All questions answered today. Discussed walker height and how to obtain prior to surgery however patient feels more comfortable having this issued to her in the hospital to make sure she has the right size. Primary Functional Limitations Walking, stair negotiation, bending/squatting to participate in yoga Plan of Care Rehabilitation Potential Excellent Physical Therapy Goals By end of session today, patient will...all goals MET 09/28/22 Demonstrate appropriate gait pattern with FWW to utilize post surgery for optimal safety when ambulating Demonstrate ability to negotiate stairs using appropriate stair pattern post surgery for optimal safety when at home and in community Verbalize understanding of most appropriate home set up including needed equipment for optimal safety and recovery post surgery Be independent in HEP program to show ability to perform appropriate exercises post surgery Treatment Plan/Direct Interventions Gait Training,Ice/Cold/ Vasopneumatic,Joint Mobilization,Manual Therapy, Neuromuscular Re-ed,Self-Care/ Home Management,Therapeutic Activities,Therapeutic Exercises Frequency/Duration 1x prior to surgery with 1-2 sessions per week for 8 weeks following surgery Patient Will Be Discharged From Therapy Completion of LTG(s), Independent w/HEP, Independently Progressing Evaluation Billing Untimed Code Treatment Minutes 25 Complexity Low Certification Information Initial Certification Date 09/28/22 Ending Certification Date 12/23/22 Provider Signature Shows Agreement With POC & Medical Necessity Physician Signature & Date Requested Please Sign/Date Here Physician Comment/Change : Physician NPI Number #
== END 2022-11-05 09:23 | disposition home or self-care (01) ==
PROVIDERS: PCP Family Medicine; Visit Provider Orthopaedic Surgery Sports Medicine
DX: M17.11 Unilateral primary osteoarthritis, right knee (principal); Z51.89 Encounter for other specified aftercare
CPT/HCPCS: 97110; 97116; 97140; 97161; 97164; 97535